=== PATIENT | female | born 1980 | race American Indian/Alaskan Native ===

== ENCOUNTER 2020-01-30 23:42 | Emergency (ER) | payer SELFPAY ==
[2020-01-31 02:18] LABS: Basophils # (Auto) 0.1 K/mm3 (0.0-0.1); Basophils % (Auto) 0.6 % (0.0-1.8); Eosinophils # (Auto) 0.1 K/mm3 (0.0-0.4); Eosinophils % (Auto) 0.6 % (0.0-4.3); Hematocrit 38.9 % (30.3-42.9); Hemoglobin 12.8 gm/dl (10.1-14.3); Lymphocytes # (Auto) 2.3 K/mm3 (1.2-5.4); Mean Corpuscular HGB Conc 33 % (30-34); Mean Corpuscular Volume 89 fl (79-97); Monocytes # (Auto) 0.5 K/mm3 (0.0-0.8); Monocytes % (Auto) 4.6 % (0.0-7.3); Platelet Count 234 K/mm3 (140-440); Red Blood Count 4.38 M/mm3 (3.65-5.03); Red Cell Distribution Width 13.5 % (13.2-15.2)
[2020-01-31 02:57] LABS: Bilirubin,Urine NEG (Negative); Blood,Urine NEG (Negative); Color,Urine Yellow (Yellow); Mucus,Urine FEW /HPF; Protein,Urine <15 mg/dL mg/dL (Negative); Urobilinogen,Urine < 2.0 mg/dL (<2.0)
[2020-01-31 03:01] LABS: Alanine Aminotransferase 11 units/L (7-56); Albumin 4.1 g/dL (3.9-5); Blood Urea Nitrogen 10 mg/dL (7-17); Calcium 9.3 mg/dL (8.4-10.2); Hemolysis Index 6
[2020-01-31 03:02] LABS: BUN/Creatinine Ratio 14
--- NOTE | 2020-01-31 04:54 | Ultrasound Report ---
ULTRASOUND ABDOMEN, LIMITED (RIGHT UPPER QUADRANT) INDICATION: Right upper quadrant pain. COMPARISON: None FINDINGS: Pancreas: Visualized portion shows no significant abnormality. Liver: The liver appears normal in size and echotexture. Gallbladder: There is a small amount of sludge versus small stones within the gallbladder. There is n o evidence of gallbladder wall thickening. Bile ducts: Common Bile Duct is normal in caliber measuring less than 2 mm Free fluid: None. Additional Findings: None. IMPRESSION: 1. Small amount of sludge versus stones within the gallbladder. No sonographic evidence for cholecyst itis. Signer Name: Valerie Go MD Signed: 01/31/2020 4:50 AM Workstation Name: [id number]
--- NOTE | 2020-01-31 05:32 | Emergency Department Report ---
ED Abdominal Pain HPI - General Chief Complaint: Abdominal Pain Stated Complaint: CATERINA/ABDOMINAL PAIN Source: patient, EMS Mode of arrival: Ambulatory Limitations: No Limitations - History of Present Illness Initial Comments: 39-year-old -[place] female with known history of gallbladder disease presents emergency department complaining abdominal pain radiates to the right upper quadrant associated with nausea. States he has been evaluated previously for this issue and surgery was recommended but not been able to do so due to insurance issues and she is currently trying to reestablish herself with insurance so she can follow-up with the surgeon to have her problem resolved. Reports no fever, chills, sweats no hematemesis no hematochezia no no no no hematuria reports no nausea vomiting -: Gradual Location: diffuse Radiation: none Migration to: no migration Severity: moderate Consistency: constant Improves With: nothing Worsens With: nothing Associated Symptoms: denies other symptoms, nausea. denies: constipation, dysuria, hematuria, anorexia, syncope - Related Data Previous Rx's Medication Instructions Recorded Last Taken Type Hyoscyamine Subl [Levsin Sl 0.125 0.125 mg SL Q4HR PRN #20 tablet 01/31/20 Unknown Rx TAB] Allergies Allergy/AdvReac Type Severity Reaction Status Date / Time No Known Allergies Allergy Unverified 01/31/20 01:39 ED Review of Systems ROS: Stated complaint: CATERINA/ABDOMINAL PAIN Other details as noted in HPI Comment: All other systems reviewed and negative ED Past Medical Hx - Past Medical History Previous Medical History?: Yes Additional medical history: Gallbladder problems - Social History Smoking Status: Light Tobacco Smoker - Medications Home Medications: Home Medications Medication Instructions Recorded Confirmed Last Taken Type Hyoscyamine Subl [Levsin Sl 0.125 0.125 mg SL Q4HR PRN #20 tablet 01/31/20 Unknown Rx TAB] ED Physical Exam - General Limitations: No Limitations General appearance: alert, in no apparent distress - Head Head exam: Present: atraumatic, normocephalic - Eye Eye exam: Present: normal appearance, PERRL, EOMI - ENT ENT exam: Present: normal exam, mucous membranes moist - Neck Neck exam: Present: normal inspection, full ROM - Respiratory Respiratory exam: Present: normal lung sounds bilaterally. Absent: respiratory distress - Cardiovascular Cardiovascular Exam: Present: regular rate, normal rhythm. Absent: systolic murmur, diastolic murmur, rubs, gallop - GI/Abdominal GI/Abdominal exam: Present: soft, tenderness, normal bowel sounds. Absent: guarding, rebound, rigid, hypoactive bowel sounds, organomegaly, mass, pulsatile mass, hernia - Extremities Exam Extremities exam: Present: normal inspection, normal capillary refill - Back Exam Back exam: Present: normal inspection - Neurological Exam Neurological exam: Present: alert, oriented X3 - Psychiatric Psychiatric exam: Present: normal affect, normal mood - Skin Skin exam: Present: warm, dry, intact, normal color. Absent: rash ED Medical Decision Making - Lab Data Result diagrams: 01/31/20 01:59 01/31/20 01:59 - EKG Data Interpretation: no acute changes - Radiology Data Radiology results: report reviewed [facility] [address] [id number] Ultrasound Report Signed Patient: CECILLE HAMMOND MR#: [id number] : 1980 Acct:[id number] Age/Sex: 39 / F ADM Date: 01/30/20 Loc: ED Attending Dr: Ordering Physician: CHAVO KUMAR Date of Service: 01/31/20 Procedure(s): US abdomen limited Accession Number(s): [id number] cc: CHAVO KUMAR ULTRASOUND ABDOMEN, LIMITED (RIGHT UPPER QUADRANT) INDICATION: Right upper quadrant pain. COMPARISON: None FINDINGS: Pancreas: Visualized portion shows no significant abnormality. Liver: The liver appears normal in size and echotexture. Gallbladder: There is a small amount of sludge versus small stones within the gallbladder. There is no evidence of gallbladder wall thickening. Bile ducts: Common Bile Duct is normal in caliber measuring less than 2 mm Free fluid: None. Additional Findings: None. IMPRESSION: 1. Small amount of sludge versus stones within the gallbladder. No sonographic evidence for cholecystitis. Signer Name: Valerie Go MD Signed: 01/31/2020 4:50 AM Workstation Name: [id number] Transcribed By: TAMIR Dictated By: Valerie Go MD Electronically Authenticated By: Valerie Go MD Signed Date/Time: 01/31/20449 DD/ 6 TD/TT: Critical care attestation.: If time is entered above; I have spent that time in minutes in the direct care of this critically ill patient, excluding procedure time. ED Disposition Clinical Impression: Abdominal pain, Gall bladder pain Disposition: TO HOME OR SELFCARE Is pt being admited?: No Does the pt Need Aspirin: No Condition: Stable Instructions: Abdominal Pain (ED), Acute Nausea and Vomiting (ED), Biliary Colic (ED), Cholecystitis (ED) Prescriptions: Hyoscyamine Subl [Levsin Sl 0.125 TAB] 0.125 mg SL Q4HR PRN #20 tablet PRN Reason: Spasms Referrals: PRIMARY CARE, [Primary Care Provider] - 3-5 Days MATTHEW MERLOS MD [Staff Physician] - 3-5 Days
== END 2020-01-31 05:45 | disposition home or self-care (01) ==
LOC: ED 23:42
DX: K80.50 Calculus of bile duct without cholangitis or cholecystitis without obstruction (principal); R10.11 Right upper quadrant pain; F17.200 Nicotine dependence, unspecified, uncomplicated; Z79.899 Other long term (current) drug therapy; Z98.890 Other specified postprocedural states
CPT/HCPCS: 36415; 76705; 80053; 81001; 83690; 84703; 85025; 87086

== ENCOUNTER 2020-03-23 23:44 | Emergency (ER) | payer SELFPAY ==
--- NOTE | 2020-03-24 03:05 | XRay Report ---
XR neck soft tissue 2 views INDICATION: foreign body in throat. COMPARISON: None available. FINDINGS: No radiopaque foreign bodies are seen. The epiglottis is unremarkable. The prevertebral soft tissues are unremarkable. Signer Name: Manpreet Oliver MD Signed: 03/24/2020 3:00 AM Workstation Name: [id number]
--- NOTE | 2020-03-24 07:55 | Emergency Department Report ---
ED General Adult HPI - General Chief complaint: Skin/Abscess/Foreign Body Stated complaint: THROAT FB Time Seen by Provider: 03/24/20 07:30 Source: patient Mode of arrival: Ambulatory Limitations: No Limitations - History of Present Illness Initial comments: This is a 39-year-old female states that last night she was eating grapes and it did not feel right. She felt like something was stuck in her throat. She self she self-induced vomit by putting her finger down her throat. She still had the sensation that something was stuck in her throat. At the time of this examination patient feels like there is no longer anything. -: Sudden Location: mouth Radiation: non-radiation Improves with: none Worsens with: none Associated Symptoms: denies other symptoms Treatments Prior to Arrival: none - Related Data Previous Rx's Medication Instructions Recorded Last Taken Type Hyoscyamine Subl [Levsin Sl 0.125 0.125 mg SL Q4HR PRN #20 tablet 01/31/20 Unknown Rx TAB] Allergies Allergy/AdvReac Type Severity Reaction Status Date / Time No Known Allergies Allergy Unverified 01/31/20 01:39 ED Review of Systems ROS: Stated complaint: THROAT FB Other details as noted in HPI Constitutional: denies: chills, fever Eyes: denies: eye pain, eye discharge ENT: throat pain. denies: ear pain, dental pain Respiratory: denies: cough Cardiovascular: denies: chest pain, palpitations, dyspnea on exertion Gastrointestinal: denies: abdominal pain, nausea, vomiting, diarrhea, constipation ED Past Medical Hx - Past Medical History Previous Medical History?: Yes Additional medical history: Gallbladder problems - Surgical History Past Surgical History?: No - Social History Smoking Status: Never Smoker Substance Use Type: None - Medications Home Medications: Home Medications Medication Instructions Recorded Confirmed Last Taken Type Hyoscyamine Subl [Levsin Sl 0.125 0.125 mg SL Q4HR PRN #20 tablet 01/31/20 Unknown Rx TAB] ED Physical Exam - General Limitations: No Limitations General appearance: alert, in no apparent distress - Head Head exam: Present: atraumatic - Eye Eye exam: Present: normal appearance - ENT ENT exam: Present: normal exam, normal orophraynx, mucous membranes moist - Neck Neck exam: Present: normal inspection, full ROM. Absent: tenderness, lymphadenopathy - Respiratory Respiratory exam: Present: normal lung sounds bilaterally. Absent: respiratory distress, wheezes - Cardiovascular Cardiovascular Exam: Present: regular rate, normal heart sounds - GI/Abdominal GI/Abdominal exam: Present: soft - Extremities Exam Extremities exam: Present: normal inspection - Back Exam Back exam: Present: normal inspection - Neurological Exam Neurological exam: Present: alert - Psychiatric Psychiatric exam: Present: normal affect - Skin Skin exam: Present: warm, dry, intact ED Course Vital Signs 03/24/20 03/24/20 01:38 08:19 Temperature 98.4 F Pulse Rate 88 85 Respiratory 18 16 Rate Blood Pressure 149/83 Blood Pressure 123/72 [Right] O2 Sat by Pulse 98 97 Oximetry - Reevaluation(s) Reevaluation #1: 8:30AM patient in no distress sensation foreign body sensation is gone soft tissue neck x-ray with no acute findings patient able to swallow without difficulty ED Medical Decision Making - Radiology Data Radiology results: report reviewed FINDINGS: No radiopaque foreign bodies are seen. The epiglottis is unremarkable. The prevertebral soft tissues are unremarkable. - Medical Decision Making No foreign bodies found on soft tissue neck patient able to swallow without difficulty foreign body sensation is gone she is discharged home Critical Care Time: No Critical care attestation.: If time is entered above; I have spent that time in minutes in the direct care of this critically ill patient, excluding procedure time. ED Disposition Clinical Impression: Foreign body sensation in throat Disposition: DC-01 TO HOME OR SELFCARE Is pt being admited?: No Does the pt Need Aspirin: No Condition: Stable Instructions: Foreign Body in Pharynx (ED) Additional Instructions: Follow-up with your doctor in 3 to 5 days if symptoms do not improve. Or return to the emergency room immediately for difficulty swallowing drooling or shortness of breath Referrals: CHAYITO CENTENO MD [Primary Care Provider] - 3-5 Days Time of Disposition: 07:53
[2020-03-24 08:21] VITALS: BP 123/72
== END 2020-03-24 08:23 | disposition home or self-care (01) ==
LOC: ED 23:44
DX: T17.228A Food in pharynx causing other injury, initial encounter (principal); Z79.899 Other long term (current) drug therapy; X58.XXXA Exposure to other specified factors, initial encounter; Y93.89 Activity, other specified; Y92.89 Other specified places as the place of occurrence of the external cause; Y99.8 Other external cause status
CPT/HCPCS: 70360; 99283

== ENCOUNTER 2020-04-14 23:21 | Emergency (ER) | payer SELFPAY ==
[2020-04-15] MEDS ORDERED: FAMOTIDINE 20 MG TAB PO ONE (01:41)
[2020-04-15] MEDS ORDERED: methylPREDNISolone Sod Succinate 125 MG/2 ML INJ IM ONE (01:41)
[2020-04-15] MEDS ORDERED: diphenhydrAMINE 25 MG CAP PO ONE (01:41)
--- NOTE | 2020-04-15 02:46 | Emergency Department Report ---
ED General Adult HPI - General Chief complaint: Allergic Reaction Stated complaint: THROAT CLOSING Source: patient Mode of arrival: Ambulatory Limitations: No Limitations - History of Present Illness Initial comments: Patient is a 40-year-old -[place] female with a history of chronic gallstones who presents to the ED with complaint of acute onset mild discomfort when she swallows and mild throat tightness when she speaks after eating food at a restaurant over 8 hours ago. Patient states that initially she never felt the symptoms soon after eating the food but subsequently developed the symptoms while at home. Patient states that each time she speaks or tries to swallow saliva she feels as if her throat is tight. Patient denies dysphonia, dysphagia, dizziness, syncope, chest pain, shortness of breath, wheezing, cough, nausea and vomiting or diarrhea, abdominal pain, itching, rashes, fever and chills or nasal and sinus congestion, facial swelling or change in vision. MD Complaint: Suspected allergic reaction to food, mild throat discomfort -: Sudden, hour(s) (8) Location: mouth Radiation: non-radiation Severity scale (0 -10): 2 Quality: dull Consistency: intermittent Improves with: none Worsens with: other (swallowing and speach) Associated Symptoms: denies other symptoms. denies: confusion, chest pain, cough, diaphoresis, fever/chills, headaches, loss of appetite, nausea/vomiting, rash, seizure, shortness of breath, syncope, weakness Treatments Prior to Arrival: none - Related Data Previous Rx's Medication Instructions Recorded Last Taken Type Hyoscyamine Subl [Levsin Sl 0.125 0.125 mg SL Q4HR PRN #20 tablet 01/31/20 Unknown Rx TAB] Famotidine [Pepcid] 20 mg PO BID #30 tablet 04/15/20 Unknown Rx Prednisone [predniSONE 10 mg 10 mg PO .TAPER #21 tab.ds.pk 04/15/20 Unknown Rx (6-Day Pack, 21 Tabs)] diphenhydrAMINE [Benadryl CAP] 25 mg PO Q6HR PRN #30 capsule 04/15/20 Unknown Rx Allergies Allergy/AdvReac Type Severity Reaction Status Date / Time No Known Allergies Allergy Unverified 01/31/20 01:39 ED Review of Systems ROS: Stated complaint: THROAT CLOSING Other details as noted in HPI Constitutional: denies: chills, fever Eyes: denies: eye pain, eye discharge, vision change ENT: throat pain, other (Mild throat discomfort and tightness). denies: ear pain Respiratory: denies: cough, shortness of breath, wheezing Cardiovascular: denies: chest pain, palpitations Endocrine: no symptoms reported Gastrointestinal: denies: abdominal pain, nausea, diarrhea Genitourinary: denies: urgency, dysuria, discharge Musculoskeletal: denies: back pain, joint swelling, arthralgia Skin: denies: rash, lesions Neurological: denies: headache, weakness, paresthesias Psychiatric: anxiety. denies: depression Hematological/Lymphatic: denies: easy bleeding, easy bruising ED Past Medical Hx - Past Medical History Previous Medical History?: Yes Additional medical history: Gallbladder problems - Surgical History Past Surgical History?: No - Social History Smoking Status: Current Every Day Smoker Substance Use Type: None - Medications Home Medications: Home Medications Medication Instructions Recorded Confirmed Last Taken Type Hyoscyamine Subl [Levsin Sl 0.125 0.125 mg SL Q4HR PRN #20 tablet 01/31/20 Unknown Rx TAB] Famotidine [Pepcid] 20 mg PO BID #30 tablet 04/15/20 Unknown Rx Prednisone [predniSONE 10 mg 10 mg PO .TAPER #21 tab.ds.pk 04/15/20 Unknown Rx (6-Day Pack, 21 Tabs)] diphenhydrAMINE [Benadryl CAP] 25 mg PO Q6HR PRN #30 capsule 04/15/20 Unknown Rx ED Physical Exam - General Limitations: No Limitations General appearance: alert, in no apparent distress - Head Head exam: Present: atraumatic, normocephalic, normal inspection - Eye Eye exam: Present: normal appearance, PERRL, EOMI Pupils: Present: normal accommodation - ENT ENT exam: Present: normal exam, normal orophraynx, mucous membranes moist, TM's normal bilaterally, normal external ear exam - Neck Neck exam: Present: normal inspection, full ROM - Respiratory Respiratory exam: Present: normal lung sounds bilaterally. Absent: respiratory distress, wheezes, rales, rhonchi, stridor, chest wall tenderness, accessory muscle use, decreased breath sounds, prolonged expiratory - Cardiovascular Cardiovascular Exam: Present: regular rate, normal rhythm, normal heart sounds. Absent: systolic murmur, diastolic murmur, rubs, gallop - GI/Abdominal GI/Abdominal exam: Present: soft, normal bowel sounds. Absent: tenderness, guarding, rebound, hyperactive bowel sounds, hypoactive bowel sounds - Extremities Exam Extremities exam: Present: normal inspection, full ROM, normal capillary refill - Back Exam Back exam: Present: normal inspection, full ROM. Absent: muscle spasm, paraspinal tenderness - Neurological Exam Neurological exam: Present: alert, oriented X3, CN II-XII intact, normal gait, reflexes normal - Psychiatric Psychiatric exam: Present: normal affect, normal mood - Skin Skin exam: Present: warm, dry, intact, normal color. Absent: rash ED Course Vital Signs 04/15/20 00:21 Temperature 98.7 F Pulse Rate 86 Respiratory 18 Rate Blood Pressure 119/63 O2 Sat by Pulse 100 Oximetry ED Medical Decision Making - Medical Decision Making This is a 40-year-old -[place] female with a history of chronic gallstones who presents to the ED with complaint of acute onset mild discomfort when she swallows and mild throat tightness when she speaks after eating food at a restaurant over 8 hours ago. Patient states that initially she never felt the symptoms soon after eating the food but subsequently developed the symptoms while at home. Patient states that each time she speaks or tries to swallow saliva she feels as if her throat is tight. In the ED, patient is alert and oriented x3 and is not in distress but appears anxious. Patient was treated for a suspected food allergy with Solu-Medrol, Pepcid and Benadryl. On reevaluation, patient felt better, patient is dynamically stable. Patient will discharge home on medications and advised to follow-up with her primary care physician in 3 to 5 days for reevaluation or return to the ED immediately if symptoms get worse. - Differential Diagnosis allergic reaction; Angioedema; urticaria; anaphylaxis; pharyngitis Critical care attestation.: If time is entered above; I have spent that time in minutes in the direct care of this critically ill patient, excluding procedure time. ED Disposition Clinical Impression: Food allergy, Throat discomfort Acute allergic reaction Qualifiers: Encounter type: initial encounter Qualified Code(s): T78.40XA - Allergy, unspecified, initial encounter Disposition: TO HOME OR SELFCARE Is pt being admited?: No Does the pt Need Aspirin: No Condition: Stable Instructions: Allergies, Adult, [id number], Food Allergy, [id number] Additional Instructions: Take medication with food, drink plenty of fluids and follow-up with your primary care physician in 3 to 5 days for reevaluation. Return to the ED immediately if symptoms get worse. Prescriptions: diphenhydrAMINE [Benadryl CAP] 25 mg PO Q6HR PRN #30 capsule PRN Reason: Allergy Symptoms Famotidine [Pepcid] 20 mg PO BID #30 tablet Prednisone [predniSONE 10 mg (6-Day Pack, 21 Tabs)] 10 mg PO .TAPER #21 tab.ds.pk Referrals: [facility] [Provider Group] - 3-5 Days Time of Disposition: 02:49 Print Language: AZERBAIJANI
[2020-04-15 03:07] VITALS: BP 120/72
== END 2020-04-15 03:07 | disposition home or self-care (01) ==
LOC: ED 23:21
DX: T78.1XXA Other adverse food reactions, not elsewhere classified, initial encounter (principal); T78.49XA Other allergy, initial encounter; R07.0 Pain in throat; F17.200 Nicotine dependence, unspecified, uncomplicated; Z79.899 Other long term (current) drug therapy; X58.XXXA Exposure to other specified factors, initial encounter
CPT/HCPCS: 96372; 99282; J2930

== ENCOUNTER 2020-04-15 06:42 | Emergency (ER) | payer SELFPAY ==
[2020-04-15 06:58] VITALS: BP 119/63
--- NOTE | 2020-04-15 07:41 | Emergency Department Report ---
ED Anxiety HPI - General Chief Complaint: Anxiety Stated Complaint: ALLERGIC REACTION Time Seen by Provider: 04/15/20 07:24 Source: patient Mode of arrival: Stretcher - History of Present Illness Initial Comments: This is a 40-year-old female nontoxic, well nourished in appearance, no acute signs of distress presents to the ED with c/o of dry mouth and feeling slightly nervousness. Patient stated she received Benadryl earlier today for allergic reaction and went home and developed some nervousness as well as dry mouth. Patient did state that her nervousness/anxiety has resolved and subsided. Patient otherwise denies any shortness of breath, angioedema, SI/HI, psychosis, fever, chills, nausea, vomiting, headache, stiff neck, difficulty breathing, throat closing or tightness in her throat. Patient denies any other symptoms or conditions. MD Complaint: anxiety, other (dry mouth) -: This morning Symptoms: dry mouth Place: home Provoking factors: medication change Improves With: nothing Worsens With: nothing Associated symptoms: denies other symptoms. denies: chest pain, shortness of breath, palpitations, diaphoresis, confusion, cough, fever/chills, headaches, a norexia, malaise, nausea/vomiting, rash, seizure, syncope, weakness - Related Data Home Medications: Previous Rx's Medication Instructions Recorded Last Taken Type Hyoscyamine Subl [Levsin Sl 0.125 0.125 mg SL Q4HR PRN #20 tablet 01/31/20 Unknown Rx TAB] Famotidine [Pepcid] 20 mg PO BID #30 tablet 04/15/20 Unknown Rx Prednisone [predniSONE 10 mg 10 mg PO .TAPER #21 tab.ds.pk 04/15/20 Unknown Rx (6-Day Pack, 21 Tabs)] diphenhydrAMINE [Benadryl CAP] 25 mg PO Q6HR PRN #30 capsule 04/15/20 Unknown Rx Allergies/Adverse Reactions: Allergies Allergy/AdvReac Type Severity Reaction Status Date / Time No Known Allergies Allergy Unverified 01/31/20 01:39 ED Review of Systems ROS: Stated complaint: ALLERGIC REACTION Other details as noted in HPI Comment: All other systems reviewed and negative Constitutional: denies: chills, fever Eyes: denies: eye pain, eye discharge, vision change ENT: denies: ear pain, throat pain Respiratory: denies: cough, shortness of breath, wheezing Cardiovascular: denies: chest pain, palpitations Endocrine: no symptoms reported Gastrointestinal: denies: abdominal pain, nausea, diarrhea Genitourinary: denies: urgency, dysuria, discharge Musculoskeletal: denies: back pain, joint swelling, arthralgia Skin: denies: rash, lesions Neurological: denies: headache, weakness, paresthesias Psychiatric: denies: anxiety, depression Hematological/Lymphatic: denies: easy bleeding, easy bruising ED Past Medical Hx - Past Medical History Previous Medical History?: Yes Hx Psychiatric Treatment: Yes (Anxiety) Additional medical history: Gallbladder problems - Surgical History Past Surgical History?: No - Social History Smoking Status: Never Smoker Substance Use Type: None - Medications Home Medications: Home Medications Medication Instructions Recorded Confirmed Last Taken Type Hyoscyamine Subl [Levsin Sl 0.125 0.125 mg SL Q4HR PRN #20 tablet 01/31/20 Unknown Rx TAB] Famotidine [Pepcid] 20 mg PO BID #30 tablet 04/15/20 Unknown Rx Prednisone [predniSONE 10 mg 10 mg PO .TAPER #21 tab.ds.pk 04/15/20 Unknown Rx (6-Day Pack, 21 Tabs)] diphenhydrAMINE [Benadryl CAP] 25 mg PO Q6HR PRN #30 capsule 04/15/20 Unknown Rx ED Physical Exam - General Limitations: No Limitations General appearance: alert, in no apparent distress - Head Head exam: Present: atraumatic, normocephalic - Eye Eye exam: Present: normal appearance - ENT ENT exam: Present: normal exam, normal orophraynx, other (no angioedema. uvula midline. ) - Neck Neck exam: Present: normal inspection, full ROM. Absent: tenderness, meningismus, lymphadenopathy - Respiratory Respiratory exam: Present: normal lung sounds bilaterally. Absent: respiratory distress, wheezes, rales, rhonchi, stridor, chest wall tenderness, accessory mus oj use, decreased breath sounds, prolonged expiratory - Cardiovascular Cardiovascular Exam: Present: regular rate, normal rhythm, normal heart sounds. Absent: bradycardia, tachycardia, irregular rhythm, systolic murmur, diastolic murmur, rubs, gallop - Extremities Exam Extremities exam: Present: full ROM - Back Exam Back exam: Present: full ROM - Neurological Exam Neurological exam: Present: alert, oriented X3, normal gait - Psychiatric Psychiatric exam: Present: normal affect, normal mood. Absent: depressed, agitated, anxious, flat affect, manic, homicidal ideation, suicidal ideation - Skin Skin exam: Present: warm, dry, intact, normal color. Absent: rash ED Course Vital Signs 04/15/20 06:51 Temperature 98.3 F Pulse Rate 75 Respiratory 18 Rate Blood Pressure 119/63 O2 Sat by Pulse 98 Oximetry - Reevaluation(s) Reevaluation #1: 04/15/20 07:40 Patient is speaking in full sentences with no signs of distress noted. ED Medical Decision Making - Medical Decision Making 40-year-old female that presents with Benadryl side effects. Patient is stable and was examined by me. Vital signs are stable. Physical exam is unremarkable. Educated patient on side effects of Benadryl. Patient was instructed to follow-up with a primary care doctor in 3-5 days or if symptoms worsen and continue return to emergency room as soon as possible. At time of discharge, the patient does not seem toxic or ill in appearance. No acute signs of distress noted. Patient agrees to discharge treatment plan of care. No further questions noted by the patient. Critical care attestation.: If time is entered above; I have spent that time in minutes in the direct care of this critically ill patient, excluding procedure time. ED Disposition Clinical Impression: Medication side effect Disposition: MED SCREENING EXAM-LEFT Is pt being admited?: No Does the pt Need Aspirin: No Condition: Stable Additional Instructions: Follow-up with a primary care doctor in 3-5 days or if symptoms worsen and continue return to emergency room as soon as possible. Referrals: SCAR DAWKINS MD [Primary Care Provider] - 3-5 Days MATTHEW MERLOS MD [Staff Physician] - 3-5 Days Forms: Work/School Release Form(ED)
== END 2020-04-15 07:50 | disposition left against medical advice (07) ==
LOC: ED 06:42
DX: Z53.21 Procedure and treatment not carried out due to patient leaving prior to being seen by health care provider (principal)

== ENCOUNTER 2020-04-16 06:03 | Emergency (ER) | payer SELFPAY ==
[2020-04-16 06:40] VITALS: BP 121/74
--- NOTE | 2020-04-16 07:53 | XRay Report ---
SOFT TISSUE NECK 2 VIEWS HISTORY: Foreign body in neck, patient ate some necrotic [place] food and thinks something is stuck in her throat. COMPARISON: 03/24/2020 FINDINGS: The base of the tongue, vallecula, epiglottis and prevertebral soft tissues are unremarkabl e. The upper airway appears widely patent. Arytenoid calcifications are noted. No radiopaque foreign body is appreciated in the visualized upper aerodigestive tract. The bony structures are normal align ment with minimal degenerative changes at C5-6. IMPRESSION: No radiopaque foreign body is identified. Signer Name: Ahmet Webb Jr, MD Signed: 04/16/2020 7:49 AM Workstation Name: [id number]
[2020-04-16] MEDS ORDERED: LIDOCAINE VISCOUS 2% 15 ML ORAL LIQD PO ONE (09:35)
--- NOTE | 2020-04-16 09:36 | Emergency Department Report ---
ED ENT HPI - General Chief complaint: Sore Throat Stated complaint: THROAT PAIN Time Seen by Provider: 04/16/20 09:22 Source: patient Mode of arrival: Stretcher Limitations: No Limitations - History of Present Illness Initial comments: 40-year-old female with no significant past medical history presents to the ER today complaining of foreign body sensation in her throat. Patient states that she woke up this morning and felt something was stuck in her throat. She states that she noticed it more when she eats or drink. She reports associated pain w ith swallowing, she states that it does feel a little swollen. Patient states that she tried to induce vomiting this morning to see if that would relieve her symptoms but was unsuccessful. She denies any drooling, voice changes, choking or trismus, or difficulty breathing. This is patient's third visit in less than a month for similar symptoms. She was seen on March 24, 2020 for similar symptoms, was diagnosed with foreign body in pharynx. She was also seen 04/15/2020 with similar complaints but was diagnosed with possible allergic reaction, and was given prescription for prednisone and Benadryl. Patient states that she did get the prednisone Benadryl filled and has been taking it since yesterday including this morning. She denies any new foods or any other new medication since yesterday or this morning. Patient states that she does not have a primary care doctor, nor has she follow- up with a ENT for her symptoms. MD complaint: sore throat -: This morning Location: throat - Related Data Previous Rx's Medication Instructions Recorded Last Taken Type Hyoscyamine Subl [Levsin Sl 0.125 0.125 mg SL Q4HR PRN #20 tablet 01/31/20 Unknown Rx TAB] Famotidine [Pepcid] 20 mg PO BID #30 tablet 04/15/20 Unknown Rx Prednisone [predniSONE 10 mg 10 mg PO .TAPER #21 tab.ds.pk 04/15/20 Unknown Rx (6-Day Pack, 21 Tabs)] diphenhydrAMINE [Benadryl CAP] 25 mg PO Q6HR PRN #30 capsule 04/15/20 Unknown Rx Amoxicillin [Trimox CAP] 500 mg PO Q12H #30 capsule 04/16/20 Unknown Rx Allergies Allergy/AdvReac Type Severity Reaction Status Date / Time No Known Allergies Allergy Unverified 01/31/20 01:39 ED Dental HPI - General Chief complaint: Sore Throat Stated complaint: THROAT PAIN Time Seen by Provider: 04/16/20 09:22 Source: patient Mode of arrival: Stretcher Limitations: No Limitations - Related Data Previous Rx's Medication Instructions Recorded Last Taken Type Hyoscyamine Subl [Levsin Sl 0.125 0.125 mg SL Q4HR PRN #20 tablet 01/31/20 Unknown Rx TAB] Famotidine [Pepcid] 20 mg PO BID #30 tablet 04/15/20 Unknown Rx Prednisone [predniSONE 10 mg 10 mg PO .TAPER #21 tab.ds.pk 04/15/20 Unknown Rx (6-Day Pack, 21 Tabs)] diphenhydrAMINE [Benadryl CAP] 25 mg PO Q6HR PRN #30 capsule 04/15/20 Unknown Rx Amoxicillin [Trimox CAP] 500 mg PO Q12H #30 capsule 04/16/20 Unknown Rx Allergies Allergy/AdvReac Type Severity Reaction Status Date / Time No Known Allergies Allergy Unverified 01/31/20 01:39 ED Review of Systems ROS: Stated complaint: THROAT PAIN Other details as noted in HPI Comment: All other systems reviewed and negative Constitutional: denies: chills, fever ENT: throat pain. denies: ear pain, dental pain, hearing loss, epistaxis, congestion Respiratory: denies: cough, shortness of breath, wheezing Cardiovascular: denies: chest pain, palpitations Gastrointestinal: denies: abdominal pain, nausea, diarrhea Musculoskeletal: denies: back pain, joint swelling, arthralgia Skin: denies: rash, lesions Neurological: denies: headache, weakness, paresthesias Psychiatric: denies: anxiety, depression Hematological/Lymphatic: denies: easy bleeding, easy bruising ED Past Medical Hx - Past Medical History Previous Medical History?: Yes Hx Psychiatric Treatment: Yes (Anxiety) Additional medical history: Gallbladder problems. Obesity - Surgical History Past Surgical History?: No - Social History Smoking Status: Never Smoker Substance Use Type: None - Medications Home Medications: Home Medications Medication Instructions Recorded Confirmed Last Taken Type Hyoscyamine Subl [Levsin Sl 0.125 0.125 mg SL Q4HR PRN #20 tablet 01/31/20 Unknown Rx TAB] Famotidine [Pepcid] 20 mg PO BID #30 tablet 04/15/20 Unknown Rx Prednisone [predniSONE 10 mg 10 mg PO .TAPER #21 tab.ds.pk 04/15/20 Unknown Rx (6-Day Pack, 21 Tabs)] diphenhydrAMINE [Benadryl CAP] 25 mg PO Q6HR PRN #30 capsule 04/15/20 Unknown Rx Amoxicillin [Trimox CAP] 500 mg PO Q12H #30 capsule 04/16/20 Unknown Rx ED Physical Exam - General Limitations: No Limitations General appearance: alert, in no apparent distress - Head Head exam: Present: atraumatic, normocephalic, normal inspection - ENT ENT exam: Present: normal exam, mucous membranes moist, other (There is mild swelling noted to posterior pharynx and bilateral tonsils but no significant swelling, or any evidence of peritonsillar abscess. She has no drooling or trismus.) - Neck Neck exam: Present: normal inspection, full ROM, thyromegaly (Possibly). Absent: meningismus, lymphadenopathy - Respiratory Respiratory exam: Present: normal lung sounds bilaterally. Absent: respiratory distress - Cardiovascular Cardiovascular Exam: Present: regular rate, normal rhythm. Absent: systolic murmur, diastolic murmur, rubs, gallop - Neurological Exam Neurological exam: Present: alert, oriented X3, CN II-XII intact, normal gait - Psychiatric Psychiatric exam: Present: normal affect, normal mood - Skin Skin exam: Present: intact ED Course Vital Signs 04/16/20 06:29 Temperature 97.3 F L Pulse Rate 80 Respiratory 18 Rate Blood Pressure 121/74 O2 Sat by Pulse 96 Oximetry ED Medical Decision Making - Radiology Data Radiology results: report reviewed - Medical Decision Making TSH normal. CT scan show nothing acute. Pt is resting comfortably, she is currently standing at the door waiting for her results. She does not appear to be in any acute distress. She has no drooling or trismus. She is tolerating her secretions. Her airway is patent. No apparent voice changes on exam. Discussed the CT and lab results with patient. Informed her that it is important that she follows up with the ENT for further evaluation of her throat discomfort. We will put her on antibiotics as a precaution for bacterial pharyngitis/tonsillitis. Recommend that she continues the prednisone, and benadryl. Patient expressed understanding if instructions and agrees with plan. She was stable at time of d/c. Critical care attestation.: If time is entered above; I have spent that time in minutes in the direct care of this critically ill patient, excluding procedure time. ED Disposition Clinical Impression: Pharyngitis, Foreign body sensation in throat Disposition: TO HOME OR SELFCARE Is pt being admited?: No Does the pt Need Aspirin: No Condition: Stable Instructions: Pharyngitis, [id number] Additional Instructions: Continue the prednisone, benadryl and start the amoxicillin as prescribed. It is important that you follow up with ENT as soon as you can for further evaluation of your symptoms. Return to ED if symptoms worsens. Prescriptions: Amoxicillin [Trimox CAP] 500 mg PO Q12H #30 capsule Referrals: MATTHEW MERLOS MD [Staff Physician] - 3-5 Days ENT [facility] [Provider Group] - 3-5 Days Time of Disposition: 12:12
--- NOTE | 2020-04-16 12:05 | Cat Scan Report ---
Nonenhanced CT scan of the neck: HISTORY: Throat swelling COMPARISON: None. TECHNIQUE: Routine CT of the neck is performed following intravenous contrast. All CT scans at this [facility] are performed using CT dose reduction for ALARA by means of automated exposure control CONTRAST: None FINDINGS: Skull Base: No significant abnormality. Parotid, Carotid, Retropharyngeal, Prevertebral, Pharyngeal Mucosal, and Imagery Analyst Spaces: Faucial t onsillar area normal; airway is not compromised in the lower cavity; epiglottis is normal Airway: Patent and without significant abnormality. Lymphatics: Reactive lymph nodes at level 2, level 3 bilaterally Vasculature: Unable to comment without intravenous contrast Osseous Structures: No significant abnormality Additional findings: None. IMPRESSION: No significant abnormality. Signer Name: Gildardo Su MD Signed: 04/16/2020 12:01 PM Workstation Name: [id number]
== END 2020-04-16 12:19 | disposition home or self-care (01) ==
LOC: ED 06:03
DX: J02.9 Acute pharyngitis, unspecified (principal); R09.89 Other specified symptoms and signs involving the circulatory and respiratory systems; F41.9 Anxiety disorder, unspecified; E66.9 Obesity, unspecified; Z79.899 Other long term (current) drug therapy; Z68.42 Body mass index [BMI] 45.0-49.9, adult
CPT/HCPCS: 36415; 70360; 70490; 84436; 84443

== ENCOUNTER 2020-04-20 04:15 | Emergency (ER) | payer SELFPAY ==
[2020-04-20 04:37] VITALS: BP 125/62
[2020-04-20 05:15] LABS: Bacteria,Urine 1+ /HPF (Negative); Bilirubin,Urine NEG (Negative); Blood,Urine NEG (Negative); Color,Urine Yellow (Yellow); Mucus,Urine FEW /HPF; Protein,Urine <15 mg/dL mg/dL (Negative); Urobilinogen,Urine < 2.0 mg/dL (<2.0)
[2020-04-20 05:48] LABS: Basophils % (Auto) 0.3 % (0.0-1.8); Eosinophils # (Auto) 0.1 K/mm3 (0.0-0.4); Eosinophils % (Auto) 1.5 % (0.0-4.3); Hematocrit 38.5 % (30.3-42.9); Hemoglobin 12.6 gm/dl (10.1-14.3); Lymphocytes # (Auto) 2.1 K/mm3 (1.2-5.4); Lymphocytes % (Auto) 20.5 % (13.4-35.0); Mean Corpuscular HGB Conc 33 % (30-34); Mean Corpuscular Volume 87 fl (79-97); Monocytes # (Auto) 0.5 K/mm3 (0.0-0.8); Monocytes % (Auto) 5.3 % (0.0-7.3); Platelet Count 245 K/mm3 (140-440); Red Blood Count 4.41 M/mm3 (3.65-5.03)
[2020-04-20 05:58] LABS: Alanine Aminotransferase 11 units/L (7-56); Albumin 3.8 g/dL (3.9-5); Blood Urea Nitrogen 10 mg/dL (7-17); Calcium 9.2 mg/dL (8.4-10.2); Hemolysis Index 2
[2020-04-20 06:08] LABS: BUN/Creatinine Ratio 14
--- NOTE | 2020-04-20 08:29 | Emergency Department Report ---
ED N/V/D HPI - General Chief complaint: Abdominal Pain Stated complaint: ABDOMINAL PAIN DIARRHEA Time Seen by Provider: 04/20/20 07:58 Source: patient Mode of arrival: Stretcher Limitations: No Limitations - History of Present Illness Initial comments: 40-year-old female presents emerge department complaining of acute onset of diarrhea with abdominal cramping and some nausea which started after she ate some food from a restaurant. States her stool has been somewhat watery and oily she also reports having known gallbladder insufficiency. She reports no gallbladder pain at present but was concerned about the amount of diarrhea she was experiencing MD complaint: nausea, diarrhea Associated Abdominal Pain: No Radiation: none Severity: mild, moderate Quality: cramping Consistency: constant Improves with: none Worsens with: none Context: possible food poisoning - Related Data Previous Rx's Medication Instructions Recorded Last Taken Type Hyoscyamine Subl [Levsin Sl 0.125 0.125 mg SL Q4HR PRN #20 tablet 01/31/20 Unknown Rx TAB] Famotidine [Pepcid] 20 mg PO BID #30 tablet 04/15/20 Unknown Rx Prednisone [predniSONE 10 mg 10 mg PO .TAPER #21 tab.ds.pk 04/15/20 Unknown Rx (6-Day Pack, 21 Tabs)] diphenhydrAMINE [Benadryl CAP] 25 mg PO Q6HR PRN #30 capsule 04/15/20 Unknown Rx Amoxicillin [Trimox CAP] 500 mg PO Q12H #30 capsule 04/16/20 Unknown Rx Ciprofloxacin HCl [Ciprofloxacin 500 mg PO Q12HR #6 tab 04/20/20 Unknown Rx TAB] Hyoscyamine Subl [Levsin Sl] 0.125 mg SL Q4HR PRN #16 tablet 04/20/20 Unknown Rx Allergies Allergy/AdvReac Type Severity Reaction Status Date / Time No Known Allergies Allergy Unverified 01/31/20 01:39 ED Review of Systems ROS: Stated complaint: ABDOMINAL PAIN DIARRHEA Other details as noted in HPI Comment: All other systems reviewed and negative ED Past Medical Hx - Past Medical History Previous Medical History?: Yes Hx Psychiatric Treatment: Yes (Anxiety) Additional medical history: Gallbladder problems. Obesity - Surgical History Past Surgical History?: No - Social History Smoking Status: Current Every Day Smoker Substance Use Type: None - Medications Home Medications: Home Medications Medication Instructions Recorded Confirmed Last Taken Type Hyoscyamine Subl [Levsin Sl 0.125 0.125 mg SL Q4HR PRN #20 tablet 01/31/20 Unknown Rx TAB] Famotidine [Pepcid] 20 mg PO BID #30 tablet 04/15/20 Unknown Rx Prednisone [predniSONE 10 mg 10 mg PO .TAPER #21 tab.ds.pk 04/15/20 Unknown Rx (6-Day Pack, 21 Tabs)] diphenhydrAMINE [Benadryl CAP] 25 mg PO Q6HR PRN #30 capsule 04/15/20 Unknown Rx Amoxicillin [Trimox CAP] 500 mg PO Q12H #30 capsule 04/16/20 Unknown Rx Ciprofloxacin HCl [Ciprofloxacin 500 mg PO Q12HR #6 tab 04/20/20 Unknown Rx TAB] Hyoscyamine Subl [Levsin Sl] 0.125 mg SL Q4HR PRN #16 tablet 04/20/20 Unknown Rx ED Physical Exam - General Limitations: No Limitations General appearance: alert, in no apparent distress - Head Head exam: Present: atraumatic, normocephalic - Eye Eye exam: Present: normal appearance - ENT ENT exam: Present: normal exam, normal orophraynx, mucous membranes moist, TM's normal bilaterally - Neck Neck exam: Present: normal inspection, full ROM - Respiratory Respiratory exam: Present: normal lung sounds bilaterally. Absent: respiratory distress, wheezes, rales, chest wall tenderness, decreased breath sounds - Cardiovascular Cardiovascular Exam: Present: regular rate, normal rhythm. Absent: systolic murmur, diastolic murmur, rubs, gallop - GI/Abdominal GI/Abdominal exam: Present: soft, normal bowel sounds, other. Absent: distended, tenderness, guarding, rebound, organomegaly, mass, bruit - Extremities Exam Extremities exam: Present: normal inspection - Back Exam Back exam: Present: normal inspection - Neurological Exam Neurological exam: Present: alert, oriented X3 - Psychiatric Psychiatric exam: Present: normal affect, normal mood - Skin Skin exam: Present: warm, dry, intact, normal color. Absent: rash ED Course Vital Signs 04/20/20 04:31 Temperature 98.1 F Pulse Rate 66 Respiratory 20 Rate Blood Pressure 125/62 O2 Sat by Pulse 99 Oximetry ED Medical Decision Making - Lab Data Result diagrams: 04/20/20 05:10 04/20/20 05:10 - Medical Decision Making Patient presents to the emergency department with nausea, vomiting, diarrhea, differential diagnosis includes possible acute gastroenteritis. Abdominal examination without peritoneal signs. Currently patient is euvolemic without evidence of dehydration. No evidence of surgical abdomen or other acute medical emergency including bowel obstruction, viscus perforation, vascular catastrophe, appendicitis, cholecystitis at this time. Presentation not consistent with other acute emergent causes of vomiting and diarrhea at this time. No artemio cation for abdominal imaging Plan supportive care, oral/IV rehydration, antiemetics and reassess Critical care attestation.: If time is entered above; I have spent that time in minutes in the direct care of this critically ill patient, excluding procedure time. ED Disposition Clinical Impression: Acute diarrhea, Gastroenteritis, UTI (urinary tract infection) Disposition: - TO HOME OR SELFCARE Is pt being admited?: No Does the pt Need Aspirin: No Condition: Stable Instructions: Abdominal Pain (ED), Food Choices to Help Relieve Diarrhea, Adult, Viral Gastroenteritis, Adult, Food Poisoning, Urinary Tract Infection, Adult Referrals: PRIMARY CARE, [Primary Care Provider] - 3-5 Days [facility] [Provider Group] - 3-5 Days
== END 2020-04-20 08:52 | disposition home or self-care (01) ==
LOC: ED 04:15
DX: K52.89 Other specified noninfective gastroenteritis and colitis (principal); N39.0 Urinary tract infection, site not specified
CPT/HCPCS: 36415; 80053; 81001; 83690; 84703; 85025; 87086; 99283

== ENCOUNTER 2020-04-21 22:33 | Emergency (ER) | payer SELFPAY ==
[2020-04-21 22:55] VITALS: BP 106/59
--- NOTE | 2020-04-21 23:38 | XRay Report ---
CHEST 2 VIEWS INDICATION / CLINICAL INFORMATION: Shortness of breath. COMPARISON: None available. FINDINGS: SUPPORT DEVICES: None. HEART / MEDIASTINUM: No significant abnormality. LUNGS / PLEURA: No significant pulmonary or pleural abnormality. No pneumothorax. ADDITIONAL FINDINGS: No significant additional findings. IMPRESSION: 1. No acute findings. Signer Name: Jarret Olivares MD Signed: 04/21/2020 11:33 PM Workstation Name: [id number]
--- NOTE | 2020-04-22 01:49 | Emergency Department Report ---
ED General Adult HPI - General Chief complaint: Dyspnea/Respdistress Stated complaint: CATERINA Source: patient Mode of arrival: Wheelchair Limitations: No Limitations - History of Present Illness Initial comments: Patient is 40-year-old -[place] female with a history of morbid obesity and anxiety who presents to the ED with chest tightness, shortness of breath and unable to sleep because of worsening anxiety for the last 2 hours. Patient states that although she has a history of anxiety she does not have any medication to take for it. Patient states that she was laying down at home on her bed and was unable to sleep. Patient states that she started feeling scared and developed chest tightness and shortness of breath and decided come to the ED for evaluation. Patient denies fever, chills, chest pain, dizziness, cough, nausea and vomiting, abdominal pain, headache, syncope, seizures, back pain or diaphoresis, neck pain or numbness and tingling or weakness of upper and lower extremities bilaterally. MD Complaint: shortness of breath; anxiety -: Sudden, hour(s) (2) Location: chest Radiation: non-radiation Severity scale (0 -10): 0 Quality: dull Consistency: intermittent Improves with: none Worsens with: none Associated Symptoms: denies other symptoms, shortness of breath. denies: confusion, chest pain, cough, diaphoresis, fever/chills, headaches, loss of appetite, malaise, nausea/vomiting, rash, seizure, syncope, weakness, other Treatments Prior to Arrival: none - Related Data Previous Rx's Medication Instructions Recorded Last Taken Type Hyoscyamine Subl [Levsin Sl 0.125 0.125 mg SL Q4HR PRN #20 tablet 01/31/20 Unknown Rx TAB] Famotidine [Pepcid] 20 mg PO BID #30 tablet 04/15/20 Unknown Rx Prednisone [predniSONE 10 mg 10 mg PO .TAPER #21 tab.ds.pk 04/15/20 Unknown Rx (6-Day Pack, 21 Tabs)] diphenhydrAMINE [Benadryl CAP] 25 mg PO Q6HR PRN #30 capsule 04/15/20 Unknown Rx Amoxicillin [Trimox CAP] 500 mg PO Q12H #30 capsule 04/16/20 Unknown Rx Ciprofloxacin HCl [Ciprofloxacin 500 mg PO Q12HR #6 tab 04/20/20 Unknown Rx TAB] Hyoscyamine Subl [Levsin Sl] 0.125 mg SL Q4HR PRN #16 tablet 04/20/20 Unknown Rx hydrOXYzine PAMOATE [Vistaril] 50 mg PO Q12HR PRN #30 capsule 04/22/20 Unknown Rx Allergies Allergy/AdvReac Type Severity Reaction Status Date / Time No Known Allergies Allergy Unverified 01/31/20 01:39 ED Review of Systems ROS: Stated complaint: CATERINA Other details as noted in HPI Constitutional: denies: chills, fever Eyes: denies: eye pain, eye discharge, vision change ENT: denies: ear pain, throat pain Respiratory: shortness of breath, other (chest tightness). denies: cough, wheezing Cardiovascular: denies: chest pain, palpitations Endocrine: no symptoms reported Gastrointestinal: denies: abdominal pain, nausea, diarrhea Genitourinary: denies: urgency, dysuria, discharge Musculoskeletal: denies: back pain, joint swelling, arthralgia Skin: denies: rash, lesions Neurological: denies: headache, weakness, paresthesias Psychiatric: anxiety, other (unable to sleep, scared). denies: depression, a uditory hallucinations, visual hallucinations, homicidal thoughts, suicidal thoughts Hematological/Lymphatic: denies: easy bleeding, easy bruising ED Past Medical Hx - Past Medical History Previous Medical History?: Yes Hx Psychiatric Treatment: Yes (Anxiety) Additional medical history: Gallbladder problems. Obesity - Social History Smoking Status: Current Every Day Smoker Substance Use Type: None - Medications Home Medications: Home Medications Medication Instructions Recorded Confirmed Last Taken Type Hyoscyamine Subl [Levsin Sl 0.125 0.125 mg SL Q4HR PRN #20 tablet 01/31/20 Unknown Rx TAB] Famotidine [Pepcid] 20 mg PO BID #30 tablet 04/15/20 Unknown Rx Prednisone [predniSONE 10 mg 10 mg PO .TAPER #21 tab.ds.pk 04/15/20 Unknown Rx (6-Day Pack, 21 Tabs)] diphenhydrAMINE [Benadryl CAP] 25 mg PO Q6HR PRN #30 capsule 04/15/20 Unknown Rx Amoxicillin [Trimox CAP] 500 mg PO Q12H #30 capsule 04/16/20 Unknown Rx Ciprofloxacin HCl [Ciprofloxacin 500 mg PO Q12HR #6 tab 04/20/20 Unknown Rx TAB] Hyoscyamine Subl [Levsin Sl] 0.125 mg SL Q4HR PRN #16 tablet 04/20/20 Unknown Rx hydrOXYzine PAMOATE [Vistaril] 50 mg PO Q12HR PRN #30 capsule 04/22/20 Unknown Rx ED Physical Exam - General Limitations: No Limitations General appearance: alert, in no apparent distress - Head Head exam: Present: atraumatic, normocephalic, normal inspection - Eye Eye exam: Present: normal appearance, PERRL, EOMI Pupils: Present: normal accommodation - ENT ENT exam: Present: normal exam, normal orophraynx, mucous membranes moist, TM's normal bilaterally, normal external ear exam - Neck Neck exam: Present: normal inspection, full ROM - Respiratory Respiratory exam: Present: normal lung sounds bilaterally. Absent: respiratory distress, wheezes, rales, stridor, chest wall tenderness, accessory muscle use, decreased breath sounds - Cardiovascular Cardiovascular Exam: Present: regular rate, normal rhythm, normal heart sounds. Absent: systolic murmur, diastolic murmur, rubs, gallop - GI/Abdominal GI/Abdominal exam: Present: soft, normal bowel sounds. Absent: tenderness, guarding, rebound, hyperactive bowel sounds, hypoactive bowel sounds - Extremities Exam Extremities exam: Present: normal inspection, full ROM, normal capillary refill - Back Exam Back exam: Present: normal inspection, full ROM. Absent: tenderness, CVA tenderness (R), CVA tenderness (L), muscle spasm, paraspinal tenderness, vertebral tenderness - Neurological Exam Neurological exam: Present: alert, oriented X3, CN II-XII intact, normal gait, reflexes normal - Psychiatric Psychiatric exam: Present: normal affect, normal mood, anxious - Skin Skin exam: Present: warm, dry, intact, normal color. Absent: rash ED Course Vital Signs 04/21/20 22:54 Temperature 98.3 F Pulse Rate 71 Respiratory 19 Rate Blood Pressure 106/59 O2 Sat by Pulse 100 Oximetry ED Medical Decision Making - Radiology Data Radiology results: report reviewed, image reviewed Findings [facility] [address] [place] [address] XRay Report Signed Patient: CECILLE HAMMOND MR#: [id number] : 1980 Acct:[id number] Age/Sex: 40 / F ADM Date: 04/21/20 Loc: ED Attending Dr: Ordering Physician: WATSON MARTINEZ MD Date of Service: 04/21/20 Procedure(s): XR chest routine 2V Accession Number(s): [id number] cc: WATSON MARTINEZ MD Fluoro Time In Minutes: CHEST 2 VIEWS INDICATION / CLINICAL INFORMATION: Shortness of breath. COMPARISON: None available. FINDINGS: SUPPORT DEVICES: None. HEART / MEDIASTINUM: No significant abnormality. LUNGS / PLEURA: No significant pulmonary or pleural abnormality. No pneumothorax. ADDITIONAL FINDINGS: No significant additional findings. IMPRESSION: 1. No acute findings. Signer Name: Jarret Olivares MD Signed: 04/21/2020 11:33 PM Workstation Name: [id number] Transcribed By: JEOVANY Dictated By: Jarret Olivares MD Electronically Authenticated By: Jarret Olivares MD Signed Date/Time: 04/21/202332 DD/ 31 TD/TT: - Medical Decision Making This is 40-year-old -[place] female with a history of morbid obesity and anxiety who presents to the ED with chest tightness, shortness of breath and unable to sleep because of worsening anxiety for the last 2 hours. Patient states that although she has a history of anxiety she does not have any medication to take for it. Patient states that she was laying down at home on her bed and was unable to sleep. Patient states that she started feeling scared and developed chest tightness and shortness of breath and decided come to the ED for evaluation. In the ED, patient is alert and oriented x3 and is not in distress and is hemodynamically stable. Patient has been treated for the same in this ED multiple times and does not follow-up with her primary care physician for evaluation. Based on the patient's history and physical exam findings, patient symptoms are likely due to anxiety and causing the insomnia. Chest x- ray shows no acute cardiopulmonary abnormalities or pneumonitis. Patient will discharge home on prescription of Vistaril and was advised to follow-up with her primary care physician in 3 to 5 days for reevaluation or return to the ED immediately if symptoms get worse. - Differential Diagnosis Anxiety; Pneumonia; Bronchitis; URI; insomnia Critical care attestation.: If time is entered above; I have spent that time in minutes in the direct care of this critically ill patient, excluding procedure time. ED Disposition Clinical Impression: Anxiety as acute reaction to exceptional stress, Shortness of breath Insomnia Qualifiers: Insomnia type: due to other mental disorder Qualified Code(s): F51.05 - Insomnia due to other mental disorder; F99 - Mental disorder, not otherwise specified Disposition: DC- TO HOME OR SELFCARE Is pt being admited?: No Does the pt Need Aspirin: No Condition: Stable Instructions: Generalized Anxiety Disorder, Adult, Supporting Someone With Anxiety Additional Instructions: Take medication as advised especially at night, follow-up with your primary care physician in 3 to 5 days for reevaluation. Return to the ED immediately if symptoms get worse. Prescriptions: hydrOXYzine PAMOATE [Vistaril] 50 mg PO Q12HR PRN #30 capsule PRN Reason: Anxiety Referrals: [facility] [Provider Group] - 3-5 Days Time of Disposition: 01:46 Print Language: CROATIAN
== END 2020-04-22 01:53 | disposition home or self-care (01) ==
LOC: ED 22:33
DX: G47.00 Insomnia, unspecified (principal); F41.1 Generalized anxiety disorder; F43.0 Acute stress reaction; R06.02 Shortness of breath; F41.9 Anxiety disorder, unspecified; E66.01 Morbid (severe) obesity due to excess calories; F17.200 Nicotine dependence, unspecified, uncomplicated; Z79.899 Other long term (current) drug therapy; Z68.21 Body mass index [BMI] 21.0-21.9, adult
CPT/HCPCS: 71046